=== PATIENT | female | born 1990 | race Caucasian/White ===

== ENCOUNTER 2017-03-21 10:46 | Outpatient (CLI) | payer MEDICAID, OTHER ==
[~2017-03-21] VITALS: Ht 165.1 cm; Wt 70.0 kg
[~2017-03-21 10:46] MED LIST: ALBU18HF INH; NITR100C PO
[2017-03-21 11:19] VITALS: BP 102/55
[2017-03-21 12:21] LABS: MICROSCOPIC AUTO
[2017-03-21 12:22] LABS: CULTURE INDICATED? NO
== END 2017-03-21 12:53 | disposition home or self-care (01) ==
LOC: LDOP 10:46
PROVIDERS: ATTEND Obstetrics & Gynecology
DX: O60.02 Preterm labor without delivery, second trimester (principal)
CPT/HCPCS: 59025; 81001; 99211; G0463

== ENCOUNTER → 2020-02-03 | Outpatient (CLI) | payer MEDICAID ==
[~2020-02-03] MED LIST changes: +OXYC-302 PO; +PREN1TAB60 PO
[2020-02-03 10:58] LABS: BASOPHILS % (AUTO) 1 % (0-1); EOSINOPHILS % (AUTO) 1 % (1-7); LYMPHOCYTES % (AUTO) 27 % (22-44); MEAN CORPUSCULAR HGB CONC 34.8 g/dL (32.4-35.8); MEAN PLATELET VOLUME 9.3 fL (7.4-10.4); MONOCYTES % (AUTO) 6 % (2-9); NEUTROPHILS % (AUTO) 65 % (42-75); PLATELET COUNT 240 x10^3/uL (130-400); RED BLOOD COUNT 4.57 x10^6/uL (3.82-5.3); RED CELL DISTRIBUTION WIDTH 12.9 % (9.6-15.2)
[2020-02-03 10:59] LABS: MD NO
[2020-02-03 11:06] LABS: INTERNATIONAL NORMALIZED RATIO 1.05 (0.93-1.1); PROTHROMBIN TIME 11.1 Seconds (9.6-11.5)
[2020-02-03 11:08] LABS: ANION GAP 2 mmol/L (5-15); CALCIUM 9.4 mg/dL (8.5-10.1); CHLORIDE 110 mmol/L (98-107)
[2020-02-03 11:09] LABS: CREATININE 0.83 mg/dL (0.55-1.02)
[2020-02-03 11:58] LABS: MICROSCOPIC AUTO
== END | disposition home or self-care (01) ==
LOC: STAR 09:59
PROVIDERS: ATTEND Urology
DX: Z01.812 Encounter for preprocedural laboratory examination (principal); Z20.828 Contact with and (suspected) exposure to other viral communicable diseases; N20.0 Calculus of kidney
CPT/HCPCS: 80048; 81001; 85025; 85610; 85730; 87077; 87086; 87186; 87635

== ENCOUNTER 2020-02-09 07:33 | Day surgery (SDC) | payer MEDICAID ==
[~2020-02-09] VITALS: Ht 165.1 cm; Wt 69.0 kg
[2020-02-09 08:11] VITALS: BP 124/82
[2020-02-09] MEDS ORDERED: CHLORHEXIDINE 15 ML UDC ONE (08:19)
[2020-02-09] MEDS ORDERED: CHLORHEXIDINE 15 ML UDC MM ONE (08:30)
[2020-02-09] MEDS ORDERED: LACTATED RINGERS 1,000 ML IV SCH (08:30)
[2020-02-09] MEDS ORDERED: LIDOCAINE-MPF 1%, 2ML INFIL ONE (08:30)
[2020-02-09 08:35] LABS: HCG UR SG 1.021 (1.003-1.030)
[2020-02-09] MEDS ORDERED: FENTANYL PF 250 MCG/5ML ONE (09:53)
[2020-02-09] MEDS ORDERED: MIDAZOLAM 1 MG/ML, 2ML ONE (09:53)
[2020-02-09] MEDS ORDERED: PROMETHAZINE 25 MG SUPP PR PRN (11:00)
[2020-02-09] MEDS ORDERED: MEPERIDINE/PF 25MG/0.5ML IVPush PRN (11:00)
[2020-02-09] MEDS ORDERED: FENTANYL PF 100 MCG/2ML IV PRN (11:00)
[2020-02-09] MEDS ORDERED: OXYcodone 5 MG/5 ML ORAL.SOL UDC PO PRN (11:00)
[2020-02-09] MEDS ORDERED: ALBUTEROL SULFATE 2.5 MG/3 ML NPPB PRN (11:00)
[2020-02-09] MEDS ORDERED: ACETAMINOPHEN 325 MG TABLET PO PRN (11:00)
[2020-02-09] MEDS ORDERED: ONDANSETRON 2MG/ML, 2ML IVPush PRN (11:00)
[2020-02-09] MEDS ORDERED: PROMETHAZINE 25 MG/ML, 1ML IVPush PRN (11:00)
[2020-02-09] MEDS ORDERED: LORazepam 2 MG/ML, 1ML IVPush PRN (11:00)
[2020-02-09] MEDS ORDERED: HYDROmorphone 1 MG/ML, 1ML INJ IVPush PRN (11:00)
[2020-02-09] MEDS ORDERED: CEFAZOLIN 1,000 MG ONE (12:04)
[2020-02-09] MEDS ORDERED: ONDANSETRON 2MG/ML, 2ML ONE ×2 (12:04→12:20)
[2020-02-09] MEDS ORDERED: PROPOFOL 10 MG/ML, 20ML ONE (12:04)
[2020-02-09] MEDS ORDERED: ACETAMINOPHEN 650 MG/20.3 ML UDC ONE (12:26)
== END 2020-02-09 14:30 | disposition home or self-care (01) ==
LOC: OUT 07:33
PROVIDERS: ATTEND Urology
DX: N20.0 Calculus of kidney (principal); R82.994 Hypercalciuria; E11.9 Type 2 diabetes mellitus without complications; I10 Essential (primary) hypertension; Z79.899 Other long term (current) drug therapy; Z87.442 Personal history of urinary calculi
CPT/HCPCS: 50590; 81025; J0690; J2250; J2405; J2704; J3010; J7120

== ENCOUNTER 2020-08-05 01:42 | Emergency (ER) | payer MEDICAID ==
[~2020-08-05] VITALS: Ht 165.1 cm; Wt 70.0 kg
[~2020-08-05 01:42] MED LIST changes: -OXYC-302 PO; +OXYC1TAB14 PO
--- NOTE | 2020-08-05 01:59 | NUR ---
PT SASHA BAKER, PT WAS FEELING DIZZY AT WORK AT [employer] AROUND 0030. PT STATED THE DIZZINESS GOT WORST AND SHE STARTED TO HAVE UPPER EPIGASTRIC PAIN THAT RADIATED TO HER BACK AND NECK. EKG PERFORMED, PT IN GOWN, ON GURNEY AND PLACED ON CONTINUOUS MONITORING.
[2020-08-05] MEDS ORDERED: LORazepam 1MG TABLET PO ONE (02:00)
[2020-08-05] MEDS ORDERED: MAALOX/HYOSCYAMINE/LIDOCAINE 45 ML BTL PO ONE (02:00)
[2020-08-05] MEDS ORDERED: MAALOX/HYOSCYAMINE/LIDOCAINE 45 ML BTL ONE (02:09)
[2020-08-05] MEDS ORDERED: LORazepam 1MG TABLET ONE (02:09)
--- NOTE | 2020-08-05 02:18 | NUR ---
PT GIVEN MEDICATIONS, PT RESTING ON GURNEY, DENIES NEEDS AT THIS TIME.
[2020-08-05 02:19] LABS: BASOPHILS % (AUTO) 1 % (0-1); EOSINOPHILS % (AUTO) 1 % (1-7); LYMPHOCYTES % (AUTO) 33 % (22-44); MEAN CORPUSCULAR HEMOGLOBIN 31.3 pg (27.0-34.8); MEAN CORPUSCULAR HGB CONC 34.9 g/dL (32.4-35.8); MEAN PLATELET VOLUME 9.5 fL (7.4-10.4); MONOCYTES % (AUTO) 8 % (2-9); NEUTROPHILS % (AUTO) 58 % (42-75); PLATELET COUNT 214 x10^3/uL (130-400); RED BLOOD COUNT 4.19 x10^6/uL (3.82-5.3); RED CELL DISTRIBUTION WIDTH 12.7 % (9.6-15.2)
[2020-08-05 02:28] LABS: ALANINE AMINOTRANSFERASE 24 U/L (12-78); ALBUMIN 3.9 g/dL (3.4-5.0); ANION GAP 10 mmol/L (5-15); CALCIUM 8.8 mg/dL (8.5-10.1); CHLORIDE 109 mmol/L (98-107); CREATININE 0.68 mg/dL (0.55-1.02)
[2020-08-05 02:32] LABS: ALKALINE PHOSPHATASE 129 U/L (45-117); BILIRUBIN,TOTAL 0.4 mg/dL (0.2-1.0); TOTAL PROTEIN 7.7 g/dL (6.4-8.2)
[2020-08-05 03:06] VITALS: BP 123/74
--- NOTE | 2020-08-05 03:16 | NUR ---
Patient given discharge instructions and they have confirmed that they understand the instructions. Patient ambulatory with steady gait.
== END 2020-08-05 03:25 | disposition home or self-care (01) ==
LOC: ED 03:00
DX: R55 Syncope and collapse (principal); F41.1 Generalized anxiety disorder; R42 Dizziness and giddiness; R20.2 Paresthesia of skin; R94.31 Abnormal electrocardiogram [ECG] [EKG]; J45.909 Unspecified asthma, uncomplicated
CPT/HCPCS: 36415; 80053; 84703; 85025; 93005; 99284